=== PATIENT | female | born 1985 | race Caucasian/White ===

== ENCOUNTER 2017-08-05 07:42 | Inpatient (IN) | payer OTHER ==
[~2017-08-05] VITALS: Ht 170.2 cm; Wt 65.8 kg
[2017-08-05] MEDS ORDERED: LORAZEPAM 2 MG/1 ML VIAL IM PRN (17:15)
[2017-08-05] MEDS ORDERED: NICOTINE POLACRILEX 4 MG GUM-PK OF TEN BC PRN (17:15)
[2017-08-05] MEDS ORDERED: ONDANSETRON ODT 4 MG TAB.RAPDIS SL PRN (17:15)
[2017-08-05] MEDS ORDERED: CLONIDINE HCL 0.1 MG TABLET PO PRN (17:15)
[2017-08-05] MEDS ORDERED: MAG HYDROX/AL HYDROX/SIMETH 30 ML LIQUID UDC PO PRN (17:15)
[2017-08-05] MEDS ORDERED: LORAZEPAM 1 MG TABLET PO PRN ×2 (17:15)
[2017-08-05] MEDS ORDERED: ONDANSETRON 4 MG/2 ML VIAL IM PRN (17:15)
[2017-08-05] MEDS ORDERED: MAGNESIUM HYDROXIDE 30 ML LIQUID UDC PO PRN (17:15)
[2017-08-05] MEDS ORDERED: MIRALAX 17 GM POWD.PACK PO PRN (17:15)
[2017-08-05] MEDS ORDERED: DICYCLOMINE HCL 20 MG TABLET PO PRN (17:15)
[2017-08-05] MEDS ORDERED: ACETAMINOPHEN 325 MG TABLET PO PRN (17:15)
[2017-08-05] MEDS ORDERED: LOPERAMIDE HCL 2 MG CAPSULE PO PRN ×2 (17:15)
[2017-08-05] MEDS ORDERED: NICO-463 BC (17:37)
[2017-08-05] MEDS ORDERED: IBUP-1955 PO (17:38)
[2017-08-05] MEDS ORDERED: DIPH25CA83 PO (17:39)
[2017-08-05] MEDS ORDERED: SULF1TAB48 PO (17:40)
[2017-08-05] MEDS ORDERED: FLUC100T8 PO (17:40)
--- NOTE | 2017-08-05 17:40 | NUR ---
pre-assessment note: pt is in stable condition, alert and oriented and able to sign consent for facility procedures and protocols. pt appears to be anxious at tis time.
[2017-08-05] MEDS ORDERED: PROP20TA7 PO (17:41)
[2017-08-05] MEDS ORDERED: FLUO40CA49 PO (17:43)
[2017-08-05 17:45] LABS: BASOPHILS % (AUTO) 0.4 % (0.0-2.0); EOSINOPHILS # (AUTO) 0.2 K/uL (0.0-0.7); EOSINOPHILS % (AUTO) 2.3 % (0.0-7.0); HEMATOCRIT 40.9 % (31.2-41.9); HEMOGLOBIN 13.5 g/dL (10.9-14.3); LYMPHOCYTES # (AUTO) 2.7 K/uL (20.0-40.0); LYMPHOCYTES % (AUTO) 29.2 % (20.5-51.5); MEAN CORPUSCULAR HGB CONC 33 g/dL (32.3-35.6); MEAN CORPUSCULAR VOLUME 87.6 fL (75.5-95.3); MONOCYTES # (AUTO) 0.6 K/uL (2.0-10.0); MONOCYTES % (AUTO) 6.7 % (0.0-11.0); NEUTROPHILS # (AUTO) 5.7 K/uL (1.8-8.9); NEUTROPHILS % (AUTO) 61.4 % (38.5-71.5); PLATELET COUNT (AUTO) 299 K/uL (179-408); RED BLOOD CELL COUNT(AUTO) 4.67 MIL/uL (3.63-4.92); WHITE BLOOD COUNT (AUTO) 9.2 K/uL (3.8-11.8)
[2017-08-05 17:53] LABS: *URINE HCG, QUAL NEGATIVE (NEGATIVE)
[2017-08-05 17:59] LABS: BILIRUBIN,TOTAL 0.3 mg/dL (0.2-1.0); CREATININE 0.8 mg/dL (0.6-1.3); MAGNESIUM 1.9 mg/dL (1.8-2.4); POTASSIUM 3.7 mmol/L (3.5-5.1); TOTAL PROTEIN, SERUM 8.1 g/dL (6.4-8.2)
[2017-08-05] MEDS ORDERED: THIAMINE HCL 200 MG/2 ML VIAL IM ONE (18:00)
[2017-08-05 18:09] LABS: *AMPHETAMINE, URINE NEGATIVE (NEGATIVE); *BARBITURATE, URINE NEGATIVE (NEGATIVE); *CANNABINOID, URINE NEGATIVE (NEGATIVE); *COCCAINE, URINE NEGATIVE (NEGATIVE); *OPIATE, URINE NEGATIVE (NEGATIVE); *PHENCYCLIDINE SCREEN,URINE NEGATIVE (NEGATIVE)
[2017-08-05 18:14] VITALS: BP 104/71
[2017-08-05] MEDS: LORAZEPAM 1 MG TABLET PO SCH ×2 (18:17→21:16)
[2017-08-05 18:22] LABS: THYROID STIMULATING HORMONE 1.113 mIU/mL (0.358-3.740)
--- NOTE | 2017-08-05 19:07 | NUR ---
ADMISSION NOTE Pt is a 31 yr old female, AA&Ox4. Pt is presenting herself to [facility] for ETOH and Klonopin use. Pt is observed with increase anxiety and is noted with episodes of crying. Fine tremors are observed. Face is observed flushed. Skin is intact, warm and moist to touch. Respirations even and unlabored. CIWA score upon admission is 13. VS are WNL. Pt states of PMH of Depression, PTSD, Panic Disorder and Insomnia. Medications was reported and reconciled. Pt states of allergies to Corticosteroids. Pt states of having hx of SI but has no active attempts or plan. No HI noted. Pt states of coming to [facility] "Because I have a good days and I have bad days, but bad days are more frequent and I told my I don't want to live anymore". SI intervention was completed. Pt states of drinking for 3 years but became a problem 8 months ago. Pt states of drinking 6-12 can of 12oz beers for 8 months. Last drink was on 08/05/17, pt states of drinking 3-12oz can of beers and 1 shot of fireball. Pt states of also taking Clonazepam 3mg PO daily for 8 months. Last use was on 08/05/17, pt states of using 3mg PO. Pt also states of smoking marijuana occasionally. Unknown of last use. Pt states this si her first time in tx. Pt denies going to AA/NA meetings. Pt was seen and examined by Dr. Vazquez. Pt is to start on 5 day Ativan taper. Ativan 2mg PO as scheduled at 1800 was administered at 1820 and was hernan well. Pt was encouraged increase fluid intake. Pt is on fall and seizure precautions. Pt was oriented around unit and equipment in room. Endorsed to mechanical service specialist nurse to continue with care.
--- NOTE | 2017-08-05 19:30 | NUR ---
Start of Shift Note 31 Y/O Female admitted 08/05/17 for withdrawal from ETOH, Clonazepam, Cannibis, found sleeping in bed, arousable to name. Speach coherent, slow, thoughtful. No c/o anxiety (says she believes the long half life of Klonopin still acting), mild tremors. CIWA at 1600 13-currently assessed at 10. Hx of depression, PRSD, panic d/o, and insomnia discussed with pt, questioned about possibility of bipolar dx. Pt responded with "probably, my father was a bad bipolar but they've never been able to assess me for it". Pt states pressures of work, home with children and , the highs and lows increasing in intensity per pt and .
[2017-08-05 20:00] VITALS: BP 94/48
[2017-08-06] VITALS: BP 107/67
[2017-08-06 04:00] VITALS: BP 123/81
[2017-08-06] MEDS: IBUPROFEN 400 MG TABLET PO PRN ×2 (04:49→14:07)
--- NOTE | 2017-08-06 04:49 | NUR ---
c/o pain pt awake w c/o pain (headache/withdrawal (CIWA 14)). Pain rated at 8/10 head throbbing. Ativan 2mg PO, Motrin 400mg PO given. Will continue to monitor and reassess in 1 hour
--- NOTE | 2017-08-06 07:19 | NUR ---
End of Shift Note Pt is a 31 y/o admitted 08/04/17 for ETOH/Klonopin withdrawal. Pt found resting beginning of shift under covers but easily arousable to name. Coherent in speech/thoughts, depressed, remorseful, but open to encouragement. Siderails padded for Sx precautions Slept night until after 0400 when awake w c/o pain (head/body). BP 123/81, P 67, R 16, SaO2 97.8% on RA. Ativan 2mg PO, Motrin 4 mg PO given for CIWA 14. 1 hour Reassessment shows pt resting with eyes closed, respirations 16 and unlabored. Will continue to monitor and give endorsement to oncoming day nurse.
--- NOTE | 2017-08-06 07:30 | NUR ---
START OF SHIFT Pt is a 31 yr old female, AA&OX4. Pt was admitted on 08/05/17 for ETOH/Benzo withdrawal and is on 5 day Ativan taper as ordered. Received report from retail cosmetics sales beauty advisor nurse. Pt received Ativan 2mg PO PRN and Motrin PO PRN during the night for s/s of w/d. Medication was effective. Last CIWA score was 14 at 0400. Pt slept for 7 hrs. Pt is currently c/o anxiety. Facial sweats is observed. Skin is intact, warm and moist to touch. Pt denies any SI/HI. Fine tremors are observed on BUE. Pt was encouraged increase fluid intake. Safety precautions observed. Call light is within reach. Will continue to monitor.
[2017-08-06 08:00] VITALS: BP 121/75
[2017-08-06] MEDS ORDERED: TUBERCULIN,PURIF.PROT.DERIV. 5 TU/0.1 ML TEST ID ONE (09:00)
[2017-08-06] MEDS: FOLIC ACID 1 MG TABLET PO SCH (09:24)
[2017-08-06] MEDS: MULTIVITAMINS,THERAPEUTIC TABLET PO SCH (09:24)
[2017-08-06] MEDS: THIAMINE HCL 100 MG TABLET PO SCH (09:24)
[2017-08-06] MEDS: LORAZEPAM 1 MG TABLET PO SCH ×3 (09:24→20:22)
--- NOTE | 2017-08-06 09:30 | NUR ---
PRN GIVEN Nicotine Gum 4mg PRN was given upon request for smoking cessation
--- NOTE | 2017-08-06 10:33 | NUR ---
Therapist prompted client to attend all groups while in treatment to increase feelings of being connected to others and not be isolated in bedroom. Therapist explained the benefits of attending groups such as learning new coping tools, learning about feelings/emotions and being able to learn to decrease negative feelings and thoughts
[2017-08-06 12:00] VITALS: BP 117/88
[2017-08-06] MEDS: ARIPIPRAZOLE 2 MG TABLET PO SCH (12:05)
--- NOTE | 2017-08-06 12:15 | NUR ---
PRN GIVEN Pt is observed with increase anxiety and crying in her room. Pt states she feels "really anxious". Fine tremors are observed on BUE. Facial flush is noted. CIWA score was 11 at 1200. Ativan 1mg PO PRN was given as ordered. Medication hernan well. Will continue to monitor.
--- NOTE | 2017-08-06 13:15 | NUR ---
PRN RE-ASSESSMENT Ativan PRN was effective. Pt states "I feel better now". CIWA score is 8. Pt was encouraged increase fluids for hydration. Will continue to monitor.
--- NOTE | 2017-08-06 14:07 | NUR ---
PRN GIVEN Pt c/o headache. Facial grimacing is observed. Motrin 400mg PO PRN was given as ordered. Medication hernan well. Encouraged increase fluid intake. Will continue to monitor.
--- NOTE | 2017-08-06 15:07 | NUR ---
PRN RE-ASSESSMENT Motrin 400mg PO PRN was effective. Pt denies any headache. Will continue to monitor.
[2017-08-06 16:00] VITALS: BP 117/77
--- NOTE | 2017-08-06 16:38 | NUR ---
Therapist prompted client to attend daily group therapy sessions. Client stated that she would attend the next group.
--- NOTE | 2017-08-06 18:58 | NUR ---
END OF SHIFT Pt is a 31 yr old female, AA&Ox4. Pt was admitted on 08/05/17 for ETOH/Benzo w/d and is on 5 day Ativan taper. Medication hernan well. Pt has been cooperative with medication regimen and plan of care. Pt was able to attend the group therapy held at 1100. Pt has been observed with increase anxiety and noted with episodes of crying. Skin was noted warm and moist to touch. Fine tremors are observed on BUE. Pt received Ativan 1mg PO PRN at 1215. Medication was effective. Pt also received Motrin 400mg PO PRN at 1407 for headache. Medication was effective. Pt was encouraged increase fluid intake. Last CIWA score was 12 at 1600. Safety precautions observed. Call light is within reach.
--- NOTE | 2017-08-06 19:30 | NUR ---
Start of Shift Note 31 y/o female admitted 08/05/17 for ETOH/Klonopin withdrawal found in bed, covers drawn over head, but arousable to name, A&O x 4, pleasant, cooperative, enthusiastic. Reports minimal discomfort, no visual/auditory/tactile hallucinations. Report included emotional moments in group during day. Pt up and ambulating in barba to break room for snack and drink. Abilify 2mg PO, started today. Ativan 2mg and Benedryl 50mg requested for 2100 med pass. Will continue to monitor and encourage Pt thru night, attempt to socialize and promote interaction.
[2017-08-06 20:00] VITALS: BP 110/76
[2017-08-06] MEDS: diphenhydrAMINE 50 MG CAPSULE PO PRN (20:22)
--- NOTE | 2017-08-06 20:22 | NUR ---
PRN Med Benedryl, 50mg, PO, given per pt request for sleep with scheduled Ativan 2mg PO @ 2100
--- NOTE | 2017-08-06 21:22 | NUR ---
PRN PO med reassesment Benedryl 50mg PO given for sleep with schedule Ativan effective. Pt resting with eyes closed, arouses to voice, able to return to rest without apparent difficulty
[2017-08-07] VITALS: BP 94/48
--- NOTE | 2017-08-07 01:11 | NUR ---
Unable to obtain VS or assess CIWA - Pt refused to be wakened. Will continue to monitor.
--- NOTE | 2017-08-07 07:18 | NUR ---
End of Shift Note 31 y/o female admitted 08/05/17 for ETOH/Klonopin withdrawal, 1999 CIWA 12, with evening meds of Ativan 2mg, PO, Benedryl 50mg PO PRN (insomnia). Pt refused midnight VS, unable to perform CIWA because of sleep. Appearing more optimistic, positive reinforcement/encouragement given to straighten room/appearance (dishevelel appearance) personal nourishment improving with snacks retrieved during evening. Intake 1050ml, 1 void, slept for 8+ hours
--- NOTE | 2017-08-07 07:24 | NUR ---
Start of Shift Notes: Endorsement received from night nurse. Patient is in her room. Asleep, easily arousable. No AV hallucinations noted. Oriented x 4. Alert and verbally responsive. Room appears unkempt. Encouraged maintenance of personal hygiene and space. Patient is a 31 year old female admitted for ETOH and BZO withdrawal who was placed on a 5-day Ativan taper as ordered. No adverse reactions noted. Educated patient on his current plan of care for the day and his medication regimen. Encouraged oral fluid and encouraged group participation to learn new skills to prevent relapse. No PRNs given during the night.
[2017-08-07 08:00] VITALS: BP 118/79
[2017-08-07 08:07] LABS: HEPATITIS B SURFACE AG Negative (Negative)
[2017-08-07] MEDS: FLUOXETINE HCL 20 MG CAPSULE PO SCH (08:42)
[2017-08-07] MEDS: ARIPIPRAZOLE 2 MG TABLET PO SCH (08:42)
[2017-08-07] MEDS: MULTIVITAMINS,THERAPEUTIC TABLET PO SCH (08:42)
[2017-08-07] MEDS: THIAMINE HCL 100 MG TABLET PO SCH (08:42)
[2017-08-07] MEDS: FOLIC ACID 1 MG TABLET PO SCH (08:42)
[2017-08-07] MEDS: LORAZEPAM 1 MG TABLET PO SCH ×2 (08:52→12:05)
[2017-08-07 12:00] VITALS: BP 125/85
--- NOTE | 2017-08-07 15:30 | NUR ---
Mid Shift Notes: CIWA 11 at 1200. Patient is currently in meditation as group activity with her peers.
[2017-08-07 16:00] VITALS: BP 125/70
[2017-08-07] MEDS ORDERED: LORAZEPAM 1 MG TABLET PO SCH ×2 (17:00→21:00)
--- NOTE | 2017-08-07 19:14 | NUR ---
End of Shift Notes: Patient continues to be on 5-day Ativan taper as ordered. No adverse reactions noted. VS monitored closely. No significant abnormalities noted. Withdrawal symptoms were closely monitored. Initial CIWA 14, patient presented with sweats, anxiety/agitation, gross tremors. No AV hallucinations noted. Denies S/I or H/I noted. Requires encouragement to attend group and activities and to socialize with her peers. Last CIWA 8. Patient verbalizes that Ativan has been effective in reducing her withdrawal symptoms. Compliant with care and treatment. All needs met and attended. Will continue to monitor closely.
--- NOTE | 2017-08-07 19:30 | NUR ---
Start of Shift Note 31 y/o female admitted 08/05/17 for ETOH/Klonopin withdrawal. Seen at nursing station at change of shift, found in room resting with eyes closed, arrousable to voice. Pleasant, cooperative with no c/o. VS stable, CIWA 8, no reports of pain or discomfort. Attending groups during day, appetite good, meals consumed and snacks requested, requesting Benedryl with Ativan for insomnia with evening meds. Will monitor for any S/Ss withdrawal.
[2017-08-07 20:00] VITALS: BP 109/72
[2017-08-07] MEDS: diphenhydrAMINE 50 MG CAPSULE PO PRN (20:22)
--- NOTE | 2017-08-07 20:22 | NUR ---
PRN Med Benedryl, 50mg PO given for insomnia.
--- NOTE | 2017-08-07 21:22 | NUR ---
Reassessment Benedryl 50mg PO effective, pt resting with eyes closed, arousable to voice, reports sleeping
--- NOTE | 2017-08-08 06:57 | NUR ---
End of Shift Note 31 y/o female admitted 08/05/17 for ETOH/Klonopin withdrawal. VSs refused at 0000 and 0400, CIWA deferred to morning per pt request. Pt remained in bed resting for shift, 9 hours sleep documented, 500ml intake with 2 voids. 0 movements. Ativan 2mg PO and benedryl 50mg PO for insomnia given for 2100 med, CIWA at 2000 was 8. Will continue to monitor and give endorsement to day RN regarding detox, anxiety, support.
--- NOTE | 2017-08-08 07:51 | NUR ---
Start of shift note; Received report from night nurse. Patient is a 31 year old female admitted on08/05/17 for ETOH/ Benzodiazepine withdrawals. Patient was placed on 5 day Ativan taper. Patient is complaining of diaphoresis, anxiety, stomach cramps, avoidant to eye contact. Educated patient regarding the importance of compliance to treatment and medication regime, verbalized understanding. Encouraged patient to participate in group therapy and activities. All safety measures secured. Will continue to monitor patient.
[2017-08-08 08:00] VITALS: BP 127/88
[2017-08-08] MEDS: FLUOXETINE HCL 20 MG CAPSULE PO SCH (08:33)
[2017-08-08] MEDS: LORAZEPAM 1 MG TABLET PO SCH ×3 (08:33→20:22)
[2017-08-08] MEDS: THIAMINE HCL 100 MG TABLET PO SCH (08:33)
[2017-08-08] MEDS: FOLIC ACID 1 MG TABLET PO SCH (08:33)
[2017-08-08] MEDS: ARIPIPRAZOLE 2 MG TABLET PO SCH (08:33)
[2017-08-08] MEDS: MULTIVITAMINS,THERAPEUTIC TABLET PO SCH (08:33)
--- NOTE | 2017-08-08 09:30 | NUR ---
Therapist prompted client about group times. Client stated she would try to attend all groups today.
[2017-08-08 12:00] VITALS: BP 123/83
[2017-08-08 16:00] VITALS: BP 110/80
--- NOTE | 2017-08-08 18:32 | NUR ---
End of shift note; Patient is AOX4, complaining of anxiety, agitation , muscle aches. Patient remained compliant with treatment plan and medication regime. Patient participated in group therapy and activities. Patient's last CIWA score is 6. Medications were effective in reducing withdrawal symptoms. All safety measures secured. Will continue to monitor patient.
--- NOTE | 2017-08-08 19:30 | NUR ---
START OF SHIFT Pt is a 31 y/o female admitted on 08/05/17 for ETOH and benzo withdrawal. Pt is on a 5 day Ativan taper that started on 08/05/17, tolerating well. Per day shift nurse last CIWA 8 and no PRNs administered. Upon assessment pt presents with anxiety, sweats, flat affect, fatigue, difficulty falling asleep, anhedonia and dysphoria. Medications due. Safety measures in place. Call light within reach. Will continue to monitor.
[2017-08-08 20:00] VITALS: BP 119/71
[2017-08-08] MEDS: diphenhydrAMINE 50 MG CAPSULE PO PRN (20:21)
--- NOTE | 2017-08-08 20:21 | NUR ---
PRN BENADRYL ADMINISTRATION Pt requests sleep aid for difficulty falling asleep. Safety measures in place. Call light within reach. Will continue to monitor.
--- NOTE | 2017-08-08 21:21 | NUR ---
PRN BENADRYL REASSESSMENT Pt laying in bed with eyes closed, mediation noted effective. Safety measures in place. Call light within reach. Will continue to monitor.
--- NOTE | 2017-08-09 | NUR ---
CIWA DEFERRED AND VITALS REFUSED Pt is laying in bed with eyes closed, CIWA deferred, to be assessed when pt is awake per orders. Vitals refused. Respirations even and unlabored. Safety measures in place. Call light within reach. Will continue to monitor.
--- NOTE | 2017-08-09 07:12 | NUR ---
END OF SHIFT Pt is a 31 y/o female admitted on 08/05/17 for ETOH and benzo withdrawal. Pt is on a 5 day Ativan taper that started on 08/05/17, tolerating well. Pt presented with anxiety, sweats, flat affect, fatigue, difficulty falling asleep, anhedonia and dysphoria. Scheduled medications and PRN Benadryl administered, effective in S/S of withdrawal as verbalized by pt. Last CIWA 7. Pt slept 9 hours. Intake 1500 ml, void x 1, stool x 0. Safety measures in place. Pts needs have been met. Call light within reach. Endorsed to day shift nurse.
--- NOTE | 2017-08-09 07:51 | NUR ---
Start of shift note; Received report from night nurse. Patient is a 31 year old female admitted on08/05/17 for ETOH/ Benzodiazepine withdrawals. Patient was placed on 5 day Ativan taper. Patient is complaining of diaphoresis, anxiety, stomach cramps, avoidant to eye contact, withdrawn, depressed. Educated patient regarding the importance of compliance to treatment and medication regime, verbalized understanding. Encouraged patient to participate in group therapy and activities and to verbalize feelings. All safety measures secured. Will continue to monitor patient.
[2017-08-09 08:00] VITALS: BP 120/80
[2017-08-09] MEDS: THIAMINE HCL 100 MG TABLET PO SCH (08:35)
[2017-08-09] MEDS: MULTIVITAMINS,THERAPEUTIC TABLET PO SCH (08:35)
[2017-08-09] MEDS: ARIPIPRAZOLE 2 MG TABLET PO SCH (08:35)
[2017-08-09] MEDS: FLUOXETINE HCL 20 MG CAPSULE PO SCH (08:35)
[2017-08-09] MEDS: FOLIC ACID 1 MG TABLET PO SCH (08:35)
[2017-08-09] MEDS: LORAZEPAM 1 MG TABLET PO SCH ×2 (08:48→21:45)
--- NOTE | 2017-08-09 09:30 | NUR ---
Medication refusal; Patient refused to take scheduled Ativan dose, patient stated " I want to be discharged sometime today, i don't think i need to stay here any longer. I feel great, staying here longer just makes me depressed. I would like to get transferred to a treatment Center possibly today." Educated patient regarding importance of compliance to treatment, patient verbalized understanding .
[2017-08-09 12:00] VITALS: BP 116/96
[2017-08-09] MEDS ORDERED: LORAZEPAM 1 MG TABLET PO PRN ×2 (14:15)
[2017-08-09 16:00] VITALS: BP 130/90
[2017-08-09] MEDS ORDERED: IBUP-1953 PO (16:51)
[2017-08-09] MEDS ORDERED: HYDR25CA PO (16:51)
[2017-08-09] MEDS ORDERED: NICO4GUM38 BC (16:51)
[2017-08-09] MEDS ORDERED: CLON0.1T14 PO (16:51)
[2017-08-09] MEDS ORDERED: ARIP2TAB3 PO (16:51)
[2017-08-09] MEDS ORDERED: DIPH50CA37 PO (16:51)
--- NOTE | 2017-08-09 18:32 | NUR ---
End of shift note; Patient is AOX4, complaining of anxiety, agitation , muscle aches. Patient remained compliant with treatment plan and medication regime. Patient participated in group therapy and activities. Patient's last CIWA score is 9 at 1600. Medications were effective in reducing withdrawal symptoms. Patient was educated regarding the importance of completing treatment and risks of leaving AMA, patient verbalized understanding. All safety measures secured. Will continue to monitor patient.
--- NOTE | 2017-08-09 19:30 | NUR ---
START OF SHIFT Pt is a 31 y/o female admitted on 08/05/17 for ETOH and benzo withdrawal. Pt is on a 5 day Ativan taper that started on 08/05/17, tolerating well. Per day shift nurse last CIWA 9 and no PRNs administered. Pt refused scheduled morning Ativan. Upon assessment pt presents with anxiety, sweats, flat affect, fatigue, difficulty falling asleep, anhedonia and dysphoria. Medications due. Safety measures in place. Call light within reach. Will continue to monitor.
[2017-08-09 20:00] VITALS: BP 121/84
[2017-08-09] MEDS ORDERED: diphenhydrAMINE 50 MG CAPSULE ONE (21:32)
[2017-08-09] MEDS: diphenhydrAMINE 50 MG CAPSULE PO PRN (21:45)
--- NOTE | 2017-08-09 21:45 | NUR ---
PRN BENADRYL ADMINISTRATION Pt requests sleep aid for insomnia. Safety measures in place. Call light within reach. Will continue to monitor.
--- NOTE | 2017-08-09 22:45 | NUR ---
PRN BENADRYL REASSESSMENT Pt laying in bed with eyes closed, medication noted effective. Respirations even and unlabored. Safety measures in place. Call light within reach. Will continue to monitor.
--- NOTE | 2017-08-10 | NUR ---
CIWA DEFERRED AND VITALS REFUSED Pt laying in bed with eyes closed, CIWA deferred, to be assessed when pt is awake per orders. Vitals refused. Respirations even and unlabored. Safety measures in place. Call light within reach. Will continue to monitor.
--- NOTE | 2017-08-10 07:14 | NUR ---
END OF SHIFT Pt is a 31 y/o female admitted on 08/05/17 for ETOH and benzo withdrawal. Pt is on a 5 day Ativan taper that started on 08/05/17, tolerating well. Pt presented with anxiety, sweats, flat affect, fatigue, difficulty falling asleep, anhedonia and dysphoria. Scheduled medications and PRN Benadryl administered, effective in S/S of withdrawal as verbalized by pt. Last CIWA 7. Pt slept 7 hours. Intake 1500 ml, void x 2, stool x 0. Safety measures in place. Pts needs have been met. Endorsed to day shift nurse.
--- NOTE | 2017-08-10 07:38 | NUR ---
Start of shift note; Received report from night nurse. Patient is a 31 year old female admitted on08/05/17 for ETOH/ Benzodiazepine withdrawals. Patient was placed on 5 day Ativan taper. Patient is complaining of diaphoresis, anxiety, stomach cramps, avoidant to eye contact, withdrawn, depressed. Educated patient regarding the importance of compliance to treatment and medication regime, verbalized understanding. Encouraged patient to participate in group therapy and activities and to verbalize feelings. Patient's last CIWA is 9 per endorsement. All safety measures secured. Will continue to monitor patient.
[2017-08-10 08:00] VITALS: BP 102/68
[2017-08-10] MEDS: ARIPIPRAZOLE 2 MG TABLET PO SCH (08:16)
[2017-08-10] MEDS: FLUOXETINE HCL 20 MG CAPSULE PO SCH (08:16)
[2017-08-10] MEDS: THIAMINE HCL 100 MG TABLET PO SCH (08:16)
[2017-08-10] MEDS: MULTIVITAMINS,THERAPEUTIC TABLET PO SCH (08:17)
[2017-08-10] MEDS: FOLIC ACID 1 MG TABLET PO SCH (08:17)
[2017-08-10] MEDS ORDERED: LORAZEPAM 1 MG TABLET PO SCH (09:00)
[2017-08-10] MEDS ORDERED: diphenhydrAMINE 25 MG CAP PO PRN (11:45)
[2017-08-10 12:00] VITALS: BP 102/60
[2017-08-10 16:00] VITALS: BP 132/61
--- NOTE | 2017-08-10 18:41 | NUR ---
End of shift note; Patient is AOX4, appears anxious, tremors noted. Patient is determined to remain sober and continue treatment at [facility]. Patient is medically cleared for discharge tomorrow per MD. Patient remained compliant with treatment plan and medication regime. Medications were effective in reducing withdrawal symptoms. Patient participated in group therapies and activities. All safety measures secured. Met all needs.
--- NOTE | 2017-08-10 19:44 | NUR ---
Start of shift note Patient is a 31 year old female admitted on 08/05/17 for ETOH/ Benzodiazepine withdrawals. Patient was placed on 5 day Ativan taper. CIWA=6 per dayshift report. Encountered patient in walking in hallway interacting with peers and staff appropriately. No distress noted. No pain reported when asked. No SOB observed. All needs met. Will continue to monitor.
[2017-08-10 20:00] VITALS: BP 123/88
[2017-08-10] MEDS ORDERED: diphenhydrAMINE 50 MG CAPSULE PO PRN (21:00)
[2017-08-10] MEDS: IBUPROFEN 400 MG TABLET PO PRN (21:38)
--- NOTE | 2017-08-11 04:12 | NUR ---
CIWA deferred CIWA deferred at 0000 at 0400 due to the patient being asleep per doctor's order. Will continue to monitor
--- NOTE | 2017-08-11 07:03 | NUR ---
End of shift All safety measures secured. Met all needs.....Patient is a 31 year old female admitted on 08/05/17 for ETOH/ Benzodiazepine withdrawals. Patient was placed on 5 day Ativan taper. CIWA=2. Patient is medically cleared for discharge today per MD. Patient remained compliant with treatment plan and medication regime. Medications were effective in reducing withdrawal symptoms.Patient Received PRN Benadryl for sleeplessness,and PRN Motrin for headache pain /10. No distress noted. No other pain reported when asked. No SOB observed. All needs met.Patient sleeping comfortably in bed. Bed in lowest position with 2/4 side rails up for safety. Call light within reach. Will endorse to oncoming shift for continuity of care.
[2017-08-11 08:00] VITALS: BP 127/80
--- NOTE | 2017-08-11 08:13 | NUR ---
START OF SHIFT PT IS A 31 Y/O F ADMITTED FOR ETOH AND BENZO W/D. PT WAS ON A 5 DAY ATIVAN TAPER THAT WAS COMPLETED YESTERDAY AND TOLERATED WELL. PT'S LAST CIWA WAS 2. PT PRESENTS ANXIETY AND STATES SHE IS NERVOUS ABOUT LEAVING DETOX. PT IS MEDICALLY CLEARED TO BE DISCHARGED TODAY. SIDE RAILS UPX2, BED IS IN LOWEST POSITION. CALL LIGHT WITHIN REACH. WILL CONTINUE TO MONITOR.
[2017-08-11] MEDS: ARIPIPRAZOLE 2 MG TABLET PO SCH (08:36)
[2017-08-11] MEDS: MULTIVITAMINS,THERAPEUTIC TABLET PO SCH (08:36)
[2017-08-11] MEDS: THIAMINE HCL 100 MG TABLET PO SCH (08:36)
[2017-08-11] MEDS: FOLIC ACID 1 MG TABLET PO SCH (08:36)
[2017-08-11] MEDS: FLUOXETINE HCL 20 MG CAPSULE PO SCH (09:12)
--- NOTE | 2017-08-11 09:28 | NUR ---
DISCHARGE NOTE PT IS A/OX4, RESPIRATIONS EVEN AND UNLABORED, VVS AND IN STABLE CONDITION. PT D/C INSTRUCTIONS GIVEN AND PT VERBALIZED UNDERSTANDING. D/C PAPERWORK SIGNED AND COPIED. PT LEFT THE BUILDING WITH ALL BELONGINGS, HOME MEDS, TOILETRIES, MAKEUP BAG, PRESCRIPTIONS AND D/C PAPERWORK. PT HAS BEEN PICKED UP BY "[facility]" AND HAS BEEN TAKEN TO [facility] AT 0928 ON 08/11/17.
== END 2017-08-11 09:28 | DRG 895 ==
LOC: SRC 16:55
PROVIDERS: ADMIT Internal Medicine; ATTEND Internal Medicine
PROC: HZ2ZZZZ Detoxification Services for Substance Abuse Treatment (ICD-10-PCS; principal; 2017-08-05)
PROC: HZ41ZZZ Group Counseling for Substance Abuse Treatment, Behavioral (ICD-10-PCS; 2017-08-06)
PROC: HZ31ZZZ Individual Counseling for Substance Abuse Treatment, Behavioral (ICD-10-PCS; 2017-08-08)
DX: F10.239 Alcohol dependence with withdrawal, unspecified (principal); F33.2 Major depressive disorder, recurrent severe without psychotic features; F12.10 Cannabis abuse, uncomplicated; Y90.6 Blood alcohol level of 120-199 mg/100 ml; F43.10 Post-traumatic stress disorder, unspecified; F41.0 Panic disorder [episodic paroxysmal anxiety]; G47.00 Insomnia, unspecified; F13.230 Sedative, hypnotic or anxiolytic dependence with withdrawal, uncomplicated; F17.211 Nicotine dependence, cigarettes, in remission; Z82.49 Family history of ischemic heart disease and other diseases of the circulatory system; Z81.8 Family history of other mental and behavioral disorders; Z81.1 Family history of alcohol abuse and dependence
CPT/HCPCS: 36415; 70030-TC; 80307; 83735; 84443; 84703; 85025; 86580; 86592; 86705; 86803; 87340; 87806; G0480; J3411; Q0163